=== PATIENT | female | born 1975 | race Caucasian/White ===

== ENCOUNTER → 2016-12-30 | Outpatient (CLI) | payer OTHER | LOC: BMCIMAGING 10:02 | PROVIDERS: ATTEND Family Medicine | DX: M79.89 Other specified soft tissue disorders (principal) ==

== ENCOUNTER → 2018-01-09 | Outpatient (CLI) | payer OTHER | LOC: CIMAGING 09:14 | PROVIDERS: ATTEND Otolaryngology | DX: J34.89 Other specified disorders of nose and nasal sinuses (principal) | CPT/HCPCS: 70486-PO ==

== ENCOUNTER → 2018-05-17 | Outpatient (CLI) | payer BC | LOC: BMCIMAGING 11:02 | PROVIDERS: ATTEND Orthopaedic Surgery Hand Surgery | DX: S52.572A Other intraarticular fracture of lower end of left radius, initial encounter for closed fracture (principal); S52.202A Unspecified fracture of shaft of left ulna, initial encounter for closed fracture ==

== ENCOUNTER → 2018-05-24 | Outpatient (CLI) | payer BC | LOC: BMCIMAGING 10:29 | PROVIDERS: ATTEND Orthopaedic Surgery Hand Surgery | DX: S52.572D Other intraarticular fracture of lower end of left radius, subsequent encounter for closed fracture with routine healing (principal) ==

== ENCOUNTER → 2018-05-31 | Outpatient (CLI) | payer BC | LOC: BMCIMAGING 09:43 | PROVIDERS: ATTEND Orthopaedic Surgery Hand Surgery | DX: S52.532A Colles' fracture of left radius, initial encounter for closed fracture (principal) ==

== ENCOUNTER → 2018-06-21 | Outpatient (CLI) | payer BC | LOC: BMCIMAGING 09:15 | PROVIDERS: ATTEND Orthopaedic Surgery Hand Surgery | DX: S52.532D Colles' fracture of left radius, subsequent encounter for closed fracture with routine healing (principal) ==

== ENCOUNTER → 2018-07-25 | Outpatient (CLI) | payer BC | LOC: BMCIMAGING 15:57 | PROVIDERS: ATTEND Orthopaedic Surgery Hand Surgery | DX: S52.532D Colles' fracture of left radius, subsequent encounter for closed fracture with routine healing (principal) ==